=== PATIENT | male | born 1980 | race Caucasian/White ===

== ENCOUNTER 2023-06-07 11:53 | Emergency (ER) | payer MEDICAID ==
[~2023-06-07] VITALS: Ht 167.6 cm; Wt 75.5 kg
[~2023-06-07 11:53] MED LIST: ALAVERT10 M1 PO; KLONOPIN 1MG1 MG PO; LITHIUM 30300 MG/CAP PO; NEURONTIN400 MG/CAP PO; REVIA 50MG TABL50 MG PO; TAZORAC TP; TOPAMAX 100MG100 M1 PO; TRICOR145 MG PO; ZYPREXA10 MG PO; ZYPREXA2.5 MG PO
[2023-06-07 11:55] VITALS: TEMP 98.8
[2023-06-07 13:47] VITALS: PULSE 108
== END 2023-06-07 13:46 | disposition home or self-care (01) ==
LOC: COL.ER 11:53
DX: S92.322A Displaced fracture of second metatarsal bone, left foot, initial encounter for closed fracture (principal); S92.332A Displaced fracture of third metatarsal bone, left foot, initial encounter for closed fracture; X58.XXXA Exposure to other specified factors, initial encounter